=== PATIENT | male | born 1960 | race Caucasian/White ===

== ENCOUNTER → 2024-02-20 | Outpatient (CLI) | payer OTHER ==
[2024-02-20 11:13] LABS: Albumin, Blood 2.9 g/dL (3.4-5.0); Albumin/Globulin Ratio 0.9 (0.8-1.8); Bilirubin, Total 0.3 mg/dL (0.1-1.0); Bun/Creatinine Ratio 16.9 (12.0-20.0); Calcium, Blood 8.7 mg/dL (8.5-10.1); Creatinine, Blood 1.36 mg/dL (0.60-1.20); Globulin, Blood 3.3 g/dL (2.2-4.0); Magnesium, Blood 2.4 mg/dL (1.6-2.4); Potassium, Blood 3.3 mmol/L (3.5-5.5); Total Protein, Blood 6.2 g/dL (6.4-8.2)
== END | disposition home or self-care (01) ==
LOC: LAB SHORT 10:25 → LAB 10:25
PROVIDERS: Physician Assistant
DX: N17.9 Acute kidney failure, unspecified (principal); E83.41 Hypermagnesemia; R73.03 Prediabetes
CPT/HCPCS: 36415; 80053; 83036; 83735

== ENCOUNTER 2024-05-04 13:51 | Day surgery (SDC) | payer OTHER ==
[~2024-05-04] VITALS: Ht 188 cm; Wt 90.2 kg
[2024-05-04] MEDS ORDERED: CARVEDILOL12.5 MG PO (14:08)
[2024-05-04] MEDS ORDERED: SPIRONOLACTONE25 MG PO (14:11)
[2024-05-04] MEDS ORDERED: FARXIGA10 MG PO (14:11)
[2024-05-04] MEDS ORDERED: Amiodarone HCl200 MG (14:12)
[2024-05-04] MEDS ORDERED: Prednisone10 MG (14:13)
[2024-05-04] MEDS ORDERED: ENTRESTO 24 MG1 EAC3 PO (14:14)
[2024-05-04] MEDS ORDERED: ALLOPURINOL100 M1 PO (14:14)
[2024-05-04] MEDS ORDERED: B-12500 MC2 PO (14:15)
[2024-05-04] MEDS ORDERED: THERA-D2000 UNIT PO (14:15)
[2024-05-04] MEDS ORDERED: VALS80 PO (14:17)
[2024-05-04] MEDS ORDERED: Lactated Ringer's 1,000 ML IV ONE (14:32)
[2024-05-04] MEDS ORDERED: propofoL 20 ML IV ONE (14:38)
[2024-05-04] MEDS ORDERED: Ondansetron HCl 2 MG / ML 2ML Vial ONE (14:38)
[2024-05-04] MEDS ORDERED: propofoL 50 ML IV ONE (14:41)
[2024-05-04] MEDS ORDERED: Midazolam HCl 1MG / ML 2ML Vial ONE (15:07)
[2024-05-04] MEDS ORDERED: Phenylephrine HCl 100 MCG/ML-NS 10MLSYR (1MG/10ML) ONE (15:11)
[2024-05-04 16:27] VITALS: BP 127/81
== END 2024-05-04 16:25 | disposition home or self-care (01) ==
LOC: ORSCSDS 13:51
PROVIDERS: Surgery
PROC: 0DJD8ZZ Inspection of Lower Intestinal Tract, Via Natural or Artificial Opening Endoscopic (ICD-10-PCS; principal; 2024-05-04 15:15)
DX: Z12.11 Encounter for screening for malignant neoplasm of colon (principal); K64.8 Other hemorrhoids; Z86.010 Personal history of colon polyps; J45.909 Unspecified asthma, uncomplicated; I50.84 End stage heart failure; I42.9 Cardiomyopathy, unspecified; E78.5 Hyperlipidemia, unspecified; G47.33 Obstructive sleep apnea (adult) (pediatric); R73.03 Prediabetes; Z79.899 Other long term (current) drug therapy; Z87.891 Personal history of nicotine dependence
CPT/HCPCS: J2250; J2371; J2405; J2704

== ENCOUNTER 2024-11-29 18:46 | Emergency (ER) | payer OTHER ==
[~2024-11-29] VITALS: Ht 185.4 cm; Wt 97.5 kg
[~2024-11-29 18:46] MED LIST: ALLOPURINOL100 M1 PO; Amiodarone HCl200 MG; B-12500 MC2 PO; CARVEDILOL12.5 MG PO; ENTRESTO 24 MG1 EAC3 PO; FARXIGA10 MG PO; Prednisone10 MG; SPIRONOLACTONE25 MG PO; THERA-D2000 UNIT PO; VALS80 PO
[2024-11-29 19:07] VITALS: BP 136/85
[2024-11-29] MEDS ORDERED: Amoxicillin/Clavulanate K 875 MG Tab PO ONE (21:30)
[2024-11-29] MEDS ORDERED: AMOCLA875 PO (22:03)
== END 2024-11-29 22:10 | disposition home or self-care (01) ==
LOC: ER 18:46
DX: S61.211A Laceration without foreign body of left index finger without damage to nail, initial encounter (principal); W29.8XXA Contact with other powered hand tools and household machinery, initial encounter
CPT/HCPCS: 12001; 73130; 73140; 99283-25; A9270

== ENCOUNTER 2025-04-04 08:27 | Day surgery (SDC) | payer OTHER ==
[~2025-04-04] VITALS: Ht 185.4 cm; Wt 95.4 kg
[~2025-04-04 08:27] MED LIST changes: +AMOCLA875 PO; +NS 500 ML IV ONE
[2025-04-04] MEDS ORDERED: CeFAZolin Sodium 2,000 MG VIAL ONE (09:28)
[2025-04-04] MEDS ORDERED: FARXIGA10 MG (09:47)
[2025-04-04] MEDS ORDERED: VALSARTAN80 MG (09:49)
[2025-04-04] MEDS ORDERED: ATORVASTATIN CA20 MG (09:50)
[2025-04-04] MEDS ORDERED: PREG50 (09:50)
[2025-04-04] MEDS ORDERED: NS 500 ML IV ONE (10:14)
--- NOTE | 2025-04-04 10:16 | NUR ---
04/04/25 Melvi Almodovar LOCAL INJECTION OF RIGHT HAND AT 0949. TOTAL 9ML.
[2025-04-04] MEDS ORDERED: Midazolam HCl 1MG / ML 2ML Vial ONE (10:44)
[2025-04-04] MEDS ORDERED: Ondansetron HCl 2 MG / ML 2ML Vial ONE (10:44)
[2025-04-04] MEDS ORDERED: Dexamethasone Sod Phos 10 MG/ML 1ML VIAL ONE (10:44)
[2025-04-04 11:22] VITALS: BP 114/88
--- NOTE | 2025-04-04 11:48 | NUR ---
04/04/25 Saranya Giron NUMBNESS RT RIGHT HAND, WIGGLING FINGERS, NO C/O PAIN. LIVES ALONE, BUT FRIENDS AGREED TO CHECK IN ON PT LATER
== END 2025-04-04 11:45 | disposition home or self-care (01) ==
LOC: ORSCSDS 08:27
PROVIDERS: Orthopaedic Surgery
PROC: 0LN70ZZ Release Right Hand Tendon, Open Approach (ICD-10-PCS; principal; 2025-04-04 10:00)
DX: M65.351 Trigger finger, right little finger (principal); M65.331 Trigger finger, right middle finger; M65.341 Trigger finger, right ring finger; G47.33 Obstructive sleep apnea (adult) (pediatric); I48.91 Unspecified atrial fibrillation; E78.5 Hyperlipidemia, unspecified; I10 Essential (primary) hypertension; I12.9 Hypertensive chronic kidney disease with stage 1 through stage 4 chronic kidney disease, or unspecified chronic kidney disease; N18.30 Chronic kidney disease, stage 3 unspecified; Z87.891 Personal history of nicotine dependence; Z79.899 Other long term (current) drug therapy
CPT/HCPCS: 82947; J0690; J1100; J2250; J2405; J2704; J7040